=== PATIENT | male | born 1985 | race Caucasian/White ===

== ENCOUNTER 2023-03-30 00:20 | Emergency (ER) | payer OTHER ==
[2023-03-30] MEDS ORDERED: Ketorolac 30 MG/ML SDV IM ONE (01:34)
== END 2023-03-30 02:40 | disposition home or self-care (01) ==
LOC: JP.ED 00:20
DX: S60.10XA Contusion of unspecified finger with damage to nail, initial encounter (principal); S60.222A Contusion of left hand, initial encounter; Z88.8 Allergy status to other drugs, medicaments and biological substances; W23.0XXA Caught, crushed, jammed, or pinched between moving objects, initial encounter
CPT/HCPCS: 73130; 96372; 99283; J1885

== ENCOUNTER 2023-08-14 09:30 | Emergency (ER) | payer OTHER | END 2023-08-14 12:35 | disposition home or self-care (01) | LOC: JP.ED 09:30 | DX: S90.32XA Contusion of left foot, initial encounter (principal); Z87.891 Personal history of nicotine dependence; Z88.4 Allergy status to anesthetic agent; W20.8XXA Other cause of strike by thrown, projected or falling object, initial encounter | CPT/HCPCS: 73630-26-LT; 73630-LT; 73700-LT; 99284 ==

== ENCOUNTER 2025-05-17 07:37 | Day surgery (SDC) | payer OTHER ==
[2025-05-17] MEDS: Lactated Ringers 1,000 ML IV SCH (07:54)
[2025-05-17] MEDS ORDERED: Midazolam 1 MG/ML 2 ML SDV ONE (08:01)
[2025-05-17] MEDS ORDERED: fentaNYL 100 MCG/2 ML SDV ONE (08:01)
[2025-05-17] MEDS ORDERED: Propofol 200 MG/20 ML SDV ONE ×3 (08:01→09:49)
== END 2025-05-17 11:00 | disposition home or self-care (01) ==
LOC: EDSEX → JP.SDS 07:37
PROVIDERS: ATTEND Surgery
DX: K21.9 Gastro-esophageal reflux disease without esophagitis (principal); R19.7 Diarrhea, unspecified; E66.9 Obesity, unspecified; Z88.8 Allergy status to other drugs, medicaments and biological substances; Z87.891 Personal history of nicotine dependence
CPT/HCPCS: 00813; 43239; 45380; 88305; J2250; J2704; J3010; J7120

== ENCOUNTER 2025-09-27 21:28 | Emergency (ER) | payer OTHER ==
[2025-09-27 22:31] LABS: BASOPHILS ABSOLUTE AUTO 0.04 K/uL (0.00-0.10); BASOPHILS PERCENT AUTO 0.4 % (0.1-1.3); EOSINOPHILS ABSOLUTE AUTO 0.19 K/uL (0.00-0.40); EOSINOPHILS PERCENT AUTO 2.0 % (0.0-5.4); IMMATURE GRAN ABSOLUTE AUTO 0.06 K/uL (0.00-0.23); IMMATURE GRAN PERCENT AUTO 0.6 % (0.0-0.7); LYMPHOCYTES ABSOLUTE AUTO 1.85 K/uL (0.8-3.3); LYMPHOCYTES PERCENT AUTO 19.8 % (11.4-47.7); MONOCYTES ABSOLUTE AUTO 0.77 K/uL (0.20-0.90); MONOCYTES PERCENT AUTO 8.3 % (3.3-12.6); NEUTROPHILS ABSOLUTE AUTO 6.41 K/uL (1.0-7.6); NEUTROPHILS PERCENT AUTO 68.9 % (40.0-78.1); PLATELET COUNT,PLT 290 K/uL (130-375); RED BLOOD CELL COUNT 4.81 M/uL (4.14-5.76); WHITE BLOOD CELL COUNT,WBC 9.3 K/uL (3.2-11.0)
[2025-09-27 22:55] LABS: LACTIC ACID 1.5 mmol/L (0.4-2.0)
[2025-09-27 22:58] LABS: A/G RATIO 1.3 (1.2-2.2); ALANINE AMINOTRANSFERASE,ALT 32 U/L (12-78); ASPARTATE AMNIOTRANSFERASE,AST 23 U/L (15-37); BILIRUBIN TOTAL 0.5 mg/dL (0.2-1.0); BLOOD UREA NITROGEN,BUN 10 mg/dL (7-18); CARBON DIOXIDE,CO2 27 mmol/L (21-32); CHLORIDE,CL 101 mmol/L (100-108); CREATININE 0.9 mg/dL (0.8-1.3); EST CRCL DRUG DOSING (CG) 116.20 mL/min; ESTIMATED GFR 111 mL/min (>60); GLUCOSE RANDOM 77 mg/dL (74-106); POTASSIUM,K 3.6 mmol/L (3.6-5.2); PROTEIN TOTAL,TP 7.4 g/dL (6.4-8.2); SODIUM,NA 140 mmol/L (140-148)
[2025-09-27] MEDS: Lidocaine 2% Jelly 10 ML Urojet MUCMEM ONE (22:58)
== END 2025-09-27 23:50 | disposition home or self-care (01) ==
LOC: JP.ED 21:28
DX: K60.2 Anal fissure, unspecified (principal); Z87.891 Personal history of nicotine dependence; Z79.899 Other long term (current) drug therapy; Z88.4 Allergy status to anesthetic agent
CPT/HCPCS: 36415; 80053; 83605; 85025; 86140; 99283